=== PATIENT | female | born 1960 | race Caucasian/White ===

== ENCOUNTER 2021-05-06 12:41 | Emergency (ER) | payer OTHER ==
[~2021-05-06] VITALS: Ht 170.2 cm; Wt 135.2 kg
[2021-05-06 12:45] VITALS: BP 149/57
[2021-05-06] MEDS ORDERED: TRAM50TA2 PO (12:56)
[2021-05-06] MEDS ORDERED: CAPS1ADH5 TP (12:56)
--- NOTE | 2021-05-06 13:02 | NUR ---
Patient discharged to home in stable condition. Written and verbal after care instructions given. Patient verbalizes understanding of instruction.
== END 2021-05-06 13:02 | disposition home or self-care (01) ==
LOC: ER 12:44
DX: M54.50 Low back pain, unspecified (principal)